=== PATIENT | male | born 1970 | race Caucasian/White ===

== ENCOUNTER 2017-05-15 07:22 | Emergency (ER) | payer OTHER ==
--- NOTE | 2017-05-15 07:41 | ED Physician Documentation ---
PD HPI NVD - Stated complaint Stated Complaint: MOSCOSO/NAUSEA - Chief complaint Chief Complaint: General - History obtained from History obtained from: Patient - History of Present Illness Timing - onset: How many days ago (3) Timing - duration: Days (3) Timing - details: Abrupt onset, Still present Associated symptoms: Fever, Abdominal pain, Loss of appetite, Other (headache) Contributing factors: Diabetes (noted his blood sugars slightly high 2 days ago in 200s, but otherwise have been pretty normal. Blood sugar this morning was 112.). No: Sick contact, Bad food, Recent antibiotics, Alcohol use Improved by: No: Vomiting, BM Worsened by: Eating, Palpation Similar symptoms before: Has not had sx before Recently seen: Not recently seen Review of Systems Constitutional: reports: Fever, Chills, Myalgias, Fatigue Eyes: denies: Loss of vision, Photophobia Ears: denies: Ear pain Nose: reports: Congestion Throat: reports: Sore throat. denies: Dental pain / toothache, Swollen tonsils Cardiac: denies: Chest pain / pressure, Palpitations Respiratory: denies: Cough GI: reports: Abdominal Pain, Nausea, Vomiting, Diarrhea. denies: Abdominal Swelling, Hematemesis, Bloody / black stool : denies: Dysuria, Frequency Skin: denies: Rash, Lesions Musculoskeletal: denies: Neck pain Neurologic: reports: Headache. denies: Confused, Altered mental status, Head injury Endocrine: denies: Weight loss Immunocompromised: denies: Immunocompromised, Chemotherapy PD PAST MEDICAL HISTORY - Past Medical History Past Medical History: Yes Cardiovascular: High cholesterol Respiratory: None Neuro: None Endocrine/Autoimmune: Type 1 diabetes GI: None : None HEENT: None Psych: None Musculoskeletal: None Derm: None - Past Surgical History Past Surgical History: Yes General: Cholecystectomy, Hiatal hernia repair - Present Medications Home Medications: Ambulatory Orders Medication Instructions Recorded Confirmed Aspirin [Aspir 81] 81 mg PO DAILY 08/28/13 05/15/17 Insulin Aspart [NovoLOG] 22 unit SQ TID 08/28/13 05/15/17 Insulin Glargine,Hum.rec.anlog 37 unit SQ BID 08/28/13 05/15/17 [Lantus] Simvastatin [Zocor] 40 mg PO DAILY 08/28/13 05/15/17 Ondansetron Odt [Zofran] 4 mg TL Q6H PRN #15 tablet 05/15/17 Tramadol HCl 50 mg PO Q6H PRN #20 tablet 05/15/17 - Allergies Allergies/Adverse Reactions: Allergies Allergy/AdvReac Type Severity Reaction Status Date / Time No Known Drug Allergies Allergy Verified 05/15/17 07:32 - Social History Does the pt smoke?: No Smoking Status: Never smoker Does the pt drink ETOH?: Yes Does the pt have substance abuse?: No - Immunizations Immunizations are current?: Yes - POLST Patient has POLST: Yes PD ED PE NORMAL - Vitals Vital signs reviewed: Yes - General General: Alert and oriented X 3, Well developed/nourished, Other (appears ill and pale, uncomfortable due to nausea and headache. ) - HEENT HEENT: PERRL (nonicteric), Ears normal, Pharynx benign. No: Moist mucous membranes - Neck Neck: Supple, no meningeal sign, No adenopathy - Cardiac Cardiac: RRR (tachycardic), No murmur - Respiratory Respiratory: No respiratory distress, Clear bilaterally - Abdomen Abdomen: Soft, Non tender, Non distended, No organomegaly. No: Normal bowel sounds (diminished) - Male Male : Deferred - Rectal Rectal: Deferred - Back Back: No CVA TTP - Derm Derm: Warm and dry, No rash. No: Normal color (pale) - Extremities Extremities: No tenderness to palpate, No edema, No calf tenderness / cord - Neuro Neuro: Alert and oriented X 3, No motor deficit, Normal speech Results - Vitals Vitals: Vital Signs - 24 hr 05/15/17 05/15/17 05/15/17 07:28 08:00 08:34 Temperature 36.3 C L Heart Rate 112 H 90 90 Respiratory 18 18 18 Rate Blood Pressure 121/83 H 109/69 107/65 O2 Saturation 97 98 98 05/15/17 05/15/17 05/15/17 09:45 11:54 12:48 Temperature 36.3 C L Heart Rate 87 86 87 Respiratory 16 12 16 Rate Blood Pressure 96/63 105/73 108/70 O2 Saturation 97 96 99 Oxygen O2 Source Room air - Labs Labs: Laboratory Tests 05/15/17 05/15/17 05/15/17 07:54 08:05 08:05 WBC 9.5 RBC 4.80 Hgb 14.5 Hct 41.4 L MCV 86.3 MCH 30.2 MCHC 35.1 RDW 12.9 Plt Count 149 MPV 9.5 Neut # 7.4 H Lymph # 1.2 L [place] # 0.8 Eos # 0.0 Baso # 0.0 Absolute Nucleated RBC 0.00 Nucleated RBC % 0.0 VBG pH VBG pCO2 VBG pO2 VBG HCO3 VBG Total CO2 VBG O2 Saturation VBG Base Excess Sodium 132 L Potassium 3.2 L Chloride 95 L Carbon Dioxide 23 Anion Gap 14.0 H BUN 15 Creatinine 0.9 Estimated GFR (MDRD) 90 Glucose 127 H Calcium 9.1 Magnesium 1.6 L Total Bilirubin 1.8 H AST 63 H ALT 33 Alkaline Phosphatase 55 Total Protein 7.6 Albumin 3.9 Globulin 3.7 Albumin/Globulin Ratio 1.1 Lipase 15 L Urine Color Urine Clarity Urine pH Ur Specific [place] Urine Protein Urine Glucose (UA) Urine Ketones Urine Occult Blood Urine Nitrite Urine Bilirubin Urine Urobilinogen Ur Leukocyte Esterase Ur Microscopic Review Urine Culture Comments Serum Ketones SMALL H Influenza A (Rapid) Negative Influenza B (Rapid) Negative Influenza Types A,B Ag - 05/15/17 05/15/17 08:21 12:15 WBC RBC Hgb Hct MCV MCH MCHC RDW Plt Count MPV Neut # Lymph # [place] # Eos # Baso # Absolute Nucleated RBC Nucleated RBC % VBG pH 7.462 H VBG pCO2 37.7 L VBG pO2 25.4 VBG HCO3 26.3 VBG Total CO2 27.5 VBG O2 Saturation 56.5 L VBG Base Excess 2.6 H Sodium Potassium Chloride Carbon Dioxide Anion Gap BUN Creatinine Estimated GFR (MDRD) Glucose Calcium Magnesium Total Bilirubin AST ALT Alkaline Phosphatase Total Protein Albumin Globulin Albumin/Globulin Ratio Lipase Urine Color YELLOW Urine Clarity CLEAR Urine pH 6.0 Ur Specific [place] <=1.005 Urine Protein NEGATIVE Urine Glucose (UA) NEGATIVE Urine Ketones 15 H Urine Occult Blood NEGATIVE Urine Nitrite NEGATIVE Urine Bilirubin NEGATIVE Urine Urobilinogen 0.2 (NORMAL) Ur Leukocyte Esterase NEGATIVE Ur Microscopic Review NOT INDICATED Urine Culture Comments NOT INDICATED Serum Ketones Influenza A (Rapid) Influenza B (Rapid) Influenza Types A,B Ag PD MEDICAL DECISION MAKING - ED course Complexity details: reviewed results, re-evaluated patient (feeling much better with fluids and meds. Hospitalist offered OBS but he is feeling improved enough to want to go home. ), considered differential (seems flu like; he does not seen meningitic despite complaint of headache. Seems dehydrated. Sugars are not elevated but will check for DKA as he has symptoms suggestive of that. ), d/w patient Departure - Departure Disposition: 01 Home, Self Care Clinical Impression: Flu-like symptoms, Dehydration Nausea & vomiting Qualifiers: Vomiting type: unspecified Vomiting Intractability: intractable Qualified Code( s): R11.2 - Nausea with vomiting, unspecified Diabetes Qualifiers: Diabetes mellitus type: type 1 Diabetes mellitus complication status: without complication Qualified Code(s): E10.9 - Type 1 diabetes mellitus without complications Condition: Stable Record reviewed to determine appropriate education?: Yes Instructions: ED Nausea Vomiting Prescriptions: Ondansetron Odt [Zofran] 4 mg TL Q6H PRN #15 tablet PRN Reason: Nausea / Vomiting Tramadol HCl 50 mg PO Q6H PRN #20 tablet PRN Reason: Pain Comments: Frequent fluids today. Start with bland food in simple carbohydrates and progress as able. Continue usual medications. Add ondansetron if needed for nausea. He can use Tylenol or ibuprofen for headache and pains. Add tramadol if needed for worse pain. Recheck if worse again over the next few days. Discharge Date/Time: 05/15/17 12:51
[2017-05-15] MEDS ORDERED: SODIUM CHLORIDE 0.9% 1,000 ML IV ONE ×3 (07:56→08:51)
[2017-05-15] MEDS ORDERED: ONDANSETRON 4 MG/2 ML VIAL IVP STA (07:56)
[2017-05-15] MEDS ORDERED: KETOROLAC 60 MG/2 ML VIAL IVP STA (07:56)
[2017-05-15] MEDS ORDERED: ACETAMINOPHEN 1,000 MG/100 ML 100 ML IV STA (07:56)
[2017-05-15] MEDS ORDERED: ONDANSETRON 4 MG/2 ML VIAL ONE (08:12)
[2017-05-15] MEDS ORDERED: KETOROLAC 30 MG/ML VIAL ONE (08:12)
[2017-05-15] MEDS ORDERED: ACETAMINOPHEN 1,000 MG/100 ML 100 ML IV ONE (08:13)
[2017-05-15 08:19] LABS: BASOPHILS % (AUTO) 0.5 %; EOSINOPHILS % (AUTO) 0.1 %; HCT - HEMATOCRIT 41.4 % (42.0-52.0); HGB - HEMOGLOBIN 14.5 g/dL (14.0-18.0); LYMPHOCYTES # (AUTO) 1.2 10^3/uL (1.5-3.5); LYMPHOCYTES % (AUTO) 12.8 %; MEAN CORPUSCULAR HEMOGLOBIN 30.2 pg (27.0-31.0); MEAN CORPUSCULAR HGB CONC 35.1 g/dL (32.0-36.0); MEAN CORPUSCULAR VOLUME 86.3 fL (80.0-94.0); MEAN PLATELET VOLUME 9.5 fL (7.4-11.4); MONOCYTES # (AUTO) 0.8 10^3/uL (0.0-1.0); MONOCYTES % (AUTO) 8.7 %; NEUTROPHILS # (AUTO) 7.4 10^3/uL (1.5-6.6); NEUTROPHILS % (AUTO) 77.9 %; RED CELL DISTRIBUTION WIDTH 12.9 % (12.0-15.0); UNCORRECTED WHITE BLOOD COUNT 9.5 x10^3/uL; WHITE BLOOD COUNT 9.5 x10^3/uL (4.8-10.8)
[2017-05-15 08:29] LABS: VBG PH 7.462 (7.31-7.41)
[2017-05-15 08:30] LABS: VBG BASE EXCESS 2.6 mmol/L (-2 - +2); VBG OXYGEN SATURATION 56.5 % (60-80); VBG TOTAL CO2 27.5 mmol/L (24-29)
[2017-05-15 08:31] LABS: ALBUMIN/GLOBULIN RATIO 1.1 (1.0-2.2); BILIRUBIN,TOTAL 1.8 mg/dL (0.2-1.0); BUN - BLOOD UREA NITROGEN 15 mg/dL (6-20); CALCIUM 9.1 mg/dL (8.5-10.3); CARBON DIOXIDE - CO2 23 mmol/L (21-32); CHLORIDE 95 mmol/L (101-111); CREATININE 0.9 mg/dL (0.6-1.2); GFR - MDRD 90 (>89); GLUCOSE 127 mg/dL (70-100); LIPASE 15 U/L (22-51); MAGNESIUM 1.6 mg/dL (1.7-2.8); POTASSIUM 3.2 mmol/L (3.5-5.0); SODIUM 132 mmol/L (135-145); TOTAL PROTEIN 7.6 g/dL (6.7-8.2)
[2017-05-15] MEDS ORDERED: POTASSIUM CHLOR 10 MEQ/100 ML 10 MEQ/100 ML BAG IV ONE ×2 (08:51→09:45)
[2017-05-15] MEDS ORDERED: MAGNESIUM SULFATE 2 GRAM 2 GM/50 ML BAG IV ONE ×2 (08:51→09:45)
[2017-05-15 12:48] VITALS: BP 108/70
[2017-05-15 13:02] LABS: BILIRUBIN,URINE NEGATIVE (NEGATIVE)
[2017-05-15 13:03] LABS: UA CHARGE (STRIP ONLY) YES; UR CULTURE IF IND NOT INDICATED
== END 2017-05-15 12:51 | disposition home or self-care (01) ==
LOC: ED 07:22
DX: E86.0 Dehydration (principal); E10.9 Type 1 diabetes mellitus without complications; Z79.4 Long term (current) use of insulin; E78.00 Pure hypercholesterolemia, unspecified; Z79.82 Long term (current) use of aspirin
CPT/HCPCS: 36415; 80053; 81003; 82009; 82803; 83690; 83735; 85025; 87275; 87276; 96361; 96365; 96367; 96368; 96375; 99284; J0131; 81001; 87086

== ENCOUNTER 2018-06-11 13:52 | Outpatient (CLI) | payer OTHER | END 2018-06-11 13:53 | disposition critical access hospital (66) | LOC: EMS 13:52 | PROVIDERS: ATTEND Surgery | DX: S09.90XA Unspecified injury of head, initial encounter (principal); R73.09 Other abnormal glucose; W18.30XA Fall on same level, unspecified, initial encounter; Y92.512 Supermarket, store or market as the place of occurrence of the external cause | CPT/HCPCS: A0425; A0427 ==

== ENCOUNTER 2018-06-11 14:09 | Observation (INO) | payer OTHER ==
[2018-06-11 15:04] LABS: BASOPHILS % (AUTO) 0.9 %; EOSINOPHILS # (AUTO) 0.1 10^3/uL (0.0-0.7); EOSINOPHILS % (AUTO) 2.1 %; LYMPHOCYTES # (AUTO) 1.1 10^3/uL (1.5-3.5); LYMPHOCYTES % (AUTO) 25.2 %; MEAN CORPUSCULAR HEMOGLOBIN 30.6 pg (27.0-31.0); MEAN CORPUSCULAR HGB CONC 34.8 g/dL (32.0-36.0); MEAN CORPUSCULAR VOLUME 87.8 fL (80.0-94.0); MEAN PLATELET VOLUME 8.6 fL (7.4-11.4); MONOCYTES # (AUTO) 0.3 10^3/uL (0.0-1.0); MONOCYTES % (AUTO) 7.2 %; NEUTROPHILS # (AUTO) 2.8 10^3/uL (1.5-6.6); NEUTROPHILS % (AUTO) 64.6 %; PLT - PLATELET COUNT 162 10^3/uL (130-450); RED BLOOD COUNT 4.57 10^6/uL (4.70-6.10); RED CELL DISTRIBUTION WIDTH 13.2 % (12.0-15.0); WHITE BLOOD COUNT 4.4 x10^3/uL (4.8-10.8)
[2018-06-11 15:16] LABS: ALBUMIN 4.2 g/dL (3.2-5.5); ALBUMIN/GLOBULIN RATIO 1.7 (1.0-2.2); BILIRUBIN,TOTAL 1.1 mg/dL (0.2-1.0); CALCIUM 8.8 mg/dL (8.5-10.3); CREATININE 0.7 mg/dL (0.6-1.2); TOTAL PROTEIN 6.7 g/dL (6.7-8.2)
--- NOTE | 2018-06-11 15:29 | CT Report ---
Reason: fall Procedure Date: 06/11/2018 Accession Number: [id number] / [id number] Procedure: CT - Head W/O CPT Code: FULL RESULT: EXAM: CT HEAD EXAM DATE: 06/11/2018 03:14 PM. CLINICAL HISTORY: Fall. COMPARISON: None. TECHNIQUE: Multiaxial CT images were obtained from the foramen magnum to the vertex. Reformats: Sagittal and coronal. IV contrast: None. In accordance with CT protocol optimization, one or more of the following dose reduction techniques were utilized for this exam: automated exposure control, adjustment of mA and/or KV based on patient size, or use of iterative reconstructive technique. FINDINGS: Parenchyma: No intraparenchymal hemorrhage. No evidence of mass, midline shift, or CT findings of infarction. Chambers-white differentiation is distinct. Extraaxial Spaces: Normal for age. No subdural or epidural collections identified. Ventricles: Normal in size and position. Sinuses and Orbits: Imaged paranasal sinuses, orbits, and mastoids show no significant abnormality. Bones: No evidence of fracture or calvarial defect. Other: There is focal thickening of the subgaleal soft tissues near the posterior vertex of the calvarium most likely subgaleal scalp hematoma. IMPRESSION: No evidence of fracture or intracranial injury. Probable subgaleal/scalp hematoma near the vertex. RADIA
--- NOTE | 2018-06-11 15:34 | CT Report ---
Reason: fall Procedure Date: 06/11/2018 Accession Number: [id number] / [id number] Procedure: CT - Cervical Spine W/O CPT Code: FULL RESULT: EXAM: CT CERVICAL SPINE WITHOUT CONTRAST DATE: 06/11/2018 03:14 PM. HISTORY: Fall. COMPARISONS: Head w/o 06/11/2018 2:58 PM. TECHNIQUE: Thin-section axial images were acquired of the cervical spine without contrast. Post-processing: Coronal and sagittal reformats. Other: None. In accordance with CT protocol optimization, one or more of the following dose reduction techniques were utilized for this exam: automated exposure control, adjustment of mA and/or KV based on patient size, or use of iterative reconstructive technique. FINDINGS: Alignment: No scoliosis or spondylolisthesis. Bones: No fracture or bone lesion. Interspace Levels/Facets: C1-C2: Unremarkable. C2-C3: Unremarkable. C3-C4: Unremarkable. C4-C5: Unremarkable. C5-C6: Unremarkable. C6-C7: Unremarkable. C7-T1: Unremarkable. Musculature: Normal. No fatty atrophy. Other: The paravertebral and prevertebral soft tissues are unremarkable. Nonspecific dependent airspace opacity in both upper lobes; consider atelectasis or aspiration in the right clinical scenario. IMPRESSION: 1. Normal cervical spine CT; no fracture appreciated. 2. Dependent nonspecific airspace opacity in both lungs, incompletely included. Consider atelectasis or aspiration in the right clinical scenario.. RADIA
[2018-06-11] MEDS ORDERED: DEXTROSE 50% ABBOJECT 25 GM/50 ML SYRINGE IVP STA (15:57)
--- NOTE | 2018-06-11 16:28 | ED Physician Documentation ---
PD HPI SYNCOPE - Stated complaint Stated Complaint: LOW BLOOD SUGAR - Chief complaint Chief Complaint: Neuro - History obtained from History obtained from: Patient - History of Present Illness Witnessed: Witnessed Timing - onset: How many hours ago (1) Duration: Unknown Preceding symptoms: Light headed Associated symptoms: No: Seizure, Incontinant of urine, Headache, Vision changes, Chest pain, Palpitations, Diaphoresis, Dyspnea, Nausea / vomiting, Abdominal pain Contributing factors: Decreased PO intake. No: Recent med change, Noxious stimulae, Emotional upset Injury occurred: Fell, Head injury, Bit tongue. 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 Per patient was shopping at [facility] and started feeling "funny" Like he is having a hypoglycemic event. He asked his son to buy him some candy. By the time patient's son returned to him he found his father on the floor of the store. EMS arrived and noted his blood sugar was 55. Patient was given D50 with good response. Patient stated he had a bowl of mashed potatoes for breakfast and was about to eat lunch but did not. He took his usual Lente insulin this morning. Patient denies any recent illness, travel or sick contact. Review of Systems Ten Systems: 10 systems reviewed and negative Constitutional: denies: Fever, Myalgias Eyes: denies: Loss of vision Cardiac: denies: Chest pain / pressure Respiratory: denies: Dyspnea, Cough GI: denies: Abdominal Pain, Nausea, Vomiting : denies: Dysuria Skin: reports: Abrasion (s) Musculoskeletal: denies: Neck pain, Back pain, Extremity pain Neurologic: reports: Syncope, Head injury, LOC. denies: Generalized weakness, Focal weakness, Numbness, Seizure, Headache PD PAST MEDICAL HISTORY - Past Medical History Past Medical History: Yes Cardiovascular: High cholesterol Respiratory: None Neuro: None Endocrine/Autoimmune: Type 1 diabetes GI: None : None HEENT: None Psych: None Musculoskeletal: None Derm: None - Past Surgical History Past Surgical History: Yes General: Cholecystectomy, Hiatal hernia repair - Present Medications Home Medications: Ambulatory Orders Medication Instructions Recorded Confirmed Aspirin [Aspir 81] 81 mg PO DAILY 08/28/13 05/15/17 Insulin Aspart [NovoLOG] 22 unit SQ TID 08/28/13 05/15/17 Insulin Glargine,Hum.rec.anlog 37 unit SQ BID 08/28/13 05/15/17 [Lantus] Simvastatin [Zocor] 40 mg PO DAILY 08/28/13 05/15/17 - Allergies Allergies/Adverse Reactions: Allergies Allergy/AdvReac Type Severity Reaction Status Date / Time No Known Drug Allergies Allergy Verified 06/11/18 14:17 - Social History Does the pt smoke?: No Smoking Status: Never smoker Does the pt drink ETOH?: Yes Does the pt have substance abuse?: No - Immunizations Immunizations are current?: Yes - POLST Patient has POLST: Yes PD ED PE NORMAL - Vitals Vital signs reviewed: Yes - General General: Alert and oriented X 3, No acute distress, Well developed/nourished - HEENT HEENT: PERRL, EOMI, Ears normal, Moist mucous membranes, Pharynx benign, Other (Posterior aspect of scalp with abrasion but no tenderness nor step-off. Left lower lip with small flat hematoma. 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, No motor deficit, No sensory deficit, Normal speech - Psych Psych: Normal mood, Normal affect Results - Vitals Vitals: Vital Signs - 24 hr 06/11/18 06/11/18 14:11 15:00 Temperature 35.7 C L Heart Rate 95 90 Respiratory 20 16 Rate Blood Pressure 134/88 H 124/91 H O2 Saturation 94 95 Oxygen O2 Source Room air - EKG (time done) 1446 Rate: Rate (enter#) Rhythm: NSR [place]: Normal Intervals: Normal [place] QRS: Normal Ischemia: Non specific changes - Labs Labs: Laboratory Tests 06/11/18 06/11/18 06/11/18 14:51 14:51 14:51 WBC 4.4 L RBC 4.57 L Hgb 14.0 Hct 40.1 L MCV 87.8 MCH 30.6 MCHC 34.8 RDW 13.2 Plt Count 162 MPV 8.6 Neut # (Auto) 2.8 Lymph # (Auto) 1.1 L [place] # (Auto) 0.3 Eos # (Auto) 0.1 Baso # (Auto) 0.0 Absolute Nucleated RBC 0.00 Nucleated RBC % 0.0 Sodium 138 Potassium 3.7 Chloride 106 Carbon Dioxide 24 Anion Gap 8.0 BUN 13 Creatinine 0.7 Estimated GFR (MDRD) 120 Glucose 133 H Calcium 8.8 Total Bilirubin 1.1 H AST 30 ALT 34 Alkaline Phosphatase 68 Troponin I < 0.04 Total Protein 6.7 Albumin 4.2 Globulin 2.5 Albumin/Globulin Ratio 1.7 Lipase 21 L PD MEDICAL DECISION MAKING - ED course Complexity details: reviewed results, re-evaluated patient, considered differential (Hypoglycemic event, intracranial bleed, electrolyte imbalance,), d/w patient, d/w family, d/w PMD ED course: 1540 patient and family informed of test results and CT scan. Repeat Accu-Chek was 69. We will give D50. [address] Gunter who knows the patient. She will admit the patient for observation. 1640 patient agreed to admission Departure - Departure Disposition: ED Place in Observation Clinical Impression: Hypoglycemia Syncope Qualifiers: Encounter type: initial encounter Condition: Stable
[2018-06-11] MEDS ORDERED: SODIUM CHLORIDE FLUSH 0.9% 10 ML SYRINGE IVP PRN (16:29)
[2018-06-11] MEDS ORDERED: IBUPROFEN 600 MG TABLET PO PRN (16:29)
[2018-06-11] MEDS ORDERED: oxyCODONE 5 MG TABLET PO PRN (16:29)
[2018-06-11] MEDS ORDERED: ONDANSETRON ODT 4 MG TABLET TL PRN (16:29)
[2018-06-11] MEDS ORDERED: ONDANSETRON 4 MG/2 ML VIAL IVP PRN (16:29)
--- NOTE | 2018-06-11 16:59 | HISTORY & PHYSICAL EXAMINATION ---
Chief Complaint - Chief Complaint Chief Complaint: loc for 3-[facility] History of Present Illness - Admitted From Admitted From:: Home/ER - History Obtained From Records Reviewed: [facility] History obtained from: patient and son and Dr. 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 His only main medical problem is that of type 1 diabetes. His A1c is around 7%. He takes Lantus 30 units in the morning and 25 units at night. Takes 15 units of NovoLog before meals plus whatever he needs to cover his carbs. Tries to be low on his carbs so he rarely needs to take extra. He oc casionally gets hypoglycemic. When he gets below 80 he starts to feel a little dizzy. He is rarely hypoglycemic. He ate a bowl of mashed potatoes this morning. And then he was doing [place] shopping at [facility] around 11 AM. He took his Lantus at 830, NovoLog at around the same time. While at [facility] he started to feel dizzy. His plan was to have lunch after shopping. He sent his son to go get a candy bar because he knew he was dizzy, slow and getting a low glucose. He remembers being in the candle aisle, and brief flashes of consciousness where he knew he was walking but not quite knowing where he was doing. The next thing he remembers is waking up on the floor near the socks and T-shirts. He thinks he was trying to get to the food court. His son found him unconscious, laying flat on his back with a pool of blood underneath his head. It looks like he came down on a rack of socks on his left side before he hit the floor. His son called out to a passerby to please call 911. An EMT who was getting last minute things at [facility] was there. There was also a retired marine in the store that helped him. Ambulance was called and his glucose was 57 at the scene and he was given an amp of D50. When he came to the emergency room he remembers waking up in the ambulance and even then it was difficult for him to remember things. He remembers me and 1 of the ER nurses approaching the cheryl. His tongue was sore where he bit it. There is no bowel or bladder incontinence. He was still confused, vague. Knew who he was, knew who we were, but had to struggle to recollect his memory. In the emergency room he was given an IV. No fluids. CT of the head and C-spine cleared his head and neck for fracture and bleed. When he got to the emergency room his glucose was in the 190s after being given that amp of D50. Over the course of the next 2 hours his glucose went back down again into the 70s. We gave him 2 cups of apple juice, a chicken sandwich, and he ate part of his took a candy bar and his glucose came back up again. Because he is now had 2 hypoglycemic episodes, and is still a little vague and slow, we will place him in observation for hypoglycemia until Lantus wears off and his sugar stays stabilized. History - Past Medical History Cardiovascular: reports: High cholesterol Respiratory: reports: None Neuro: reports: None Endocrine/Autoimmune: reports: Type 1 diabetes GI: reports: None : reports: None HEENT: reports: None Psych: reports: None Musculoskeletal: reports: None Derm: reports: None MRSA Hx?: No - Past Surgical History General: reports: Cholecystectomy, Hiatal hernia repair - Family & Social History Family History Comment/Other: Mom and dad are both in their late 60s. Dad is healthy as his mom. No major medical issues. 1 of several siblings, no major medical issues. To children. They are healthy. Living arrangement: At home Living Situation: With spouse/s.o. Social History Notes: Born and raised in [place]. 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 to his first . He has 2 children with her. Lives in his own home. Has no history of recreational substance abuse. Does not smoke. Rarely drinks alcohol if at all. - Substance History Use: Uses substance without health or social issues: NONE Abuse: Recurrent use of substance despite neg consequences: NONE Dependence: Experiences withdrawal or developed tolerances: NONE - POLST Patient has POLST: Yes POLST Status: Full Code Meds/Allgy - Home Medications Home Medications: Ambulatory Orders Medication Instructions Recorded Confirmed Aspirin [Aspir 81] 81 mg PO DAILY 08/28/13 05/15/17 Insulin Aspart [NovoLOG] 22 unit SQ TID 08/28/13 05/15/17 Insulin Glargine,Hum.rec.anlog 37 unit SQ BID 08/28/13 05/15/17 [Lantus] Atorvastatin Calcium [Lipitor] 80 mg PO QPM 06/11/18 06/11/18 Insulin Glargine [Lantus Solostar] 30 units SQ DAILY 06/11/18 06/11/18 - Allergies Allergies/Adverse Reactions: Allergies Allergy/AdvReac Type Severity Reaction Status Date / Time No Known Drug Allergies Allergy Verified 06/11/18 14:17 Review of Systems - Constitutional Constitutional: denies: Fatigue, Fever, Chills, Malaise, Weakness, Poor appetite - Eyes Eyes: reports: Other (Just before he passed out and since he is woken up, he has some photophobia). denies: Pain, Irritation, Amaurosis - Ears, Nose & Throat Ears, Nose & Throat: denies: Hearing loss, Hearing aids, Tinnitus, Nasal obstruction, Nasal congestion, Postnasal drainage, Dentures - Cardiovascular Cariovascular: denies: Irregular heart rate, Palpitations, Chest pain, Edema - Respiratory Respiratory: denies: Cough, Sputum production, Wheezing, Snoring - Gastrointestinal Gastrointestinal: denies: Abdominal pain, Abdominal distention, Constipation, Diarrhea, Change in bowel habits, Rectal bleeding, Black stools, Bloody stools, Nausea - Genitourinary Genitourinary: denies: Dysuria, Frequency, Urgency, Hematuria - Musculoskeletal Musculoskeletal: reports: Muscle pain, Muscle aches, Other (Left jaw hurts. He thinks he may have hit it. Right now his left lateral tongue is been bitten. He starting to get a headache.) - Integumentary Integumentary: denies: Rash, Pruritis, Lesions - Neurological Neurological: reports: General weakness, Headache, Memory problems (Right now. Usually he does not. Is only been with this episode that he feels foggy, hard to remember things). denies: Focal weakness, Dizziness, Numbness, Pre-existing deficit, Abnormal gait - Psychiatric Psychiatric: denies: Depression, Anxiety, Suicidal, Delusions, Hallucinations - Endocrine Endocrine: denies: Polyuria, Polydypsia, Polyphagia - Hematologic/Lymphatic Hematologic/Lymphatic: denies: Anemia, Bruising, Petechiae, Blood clots Prior Level of Functionality: Completely independent male. 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 Drives a car. Pays the bills. 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 Has no durable medical goods that he uses other than a glucometer. Exam - Vital Signs Reviewed Vital Signs: Yes Vital Signs: Vital Signs x48h Temp Pulse Resp BP Pulse Ox 06/11/18 15:00 90 16 124/91 H 95 06/11/18 14:11 35.7 C L 95 20 134/88 H 94 - Physical Exam General Appearance: positive: No acute distress, Alert, Other (I was first in the emergency room as he came through with equipment specialist on a gurney. At that point he was pale, very vague, slightly slurred speech. In the last 2 hours he is improved in his alertness but he is definitely not at baseline.) Eyes Bilateral: positive: PERRL, EOMI ENT: positive: Pharynx nml, Other (Left lateral tongue has been bit. Lower lip on the left side has been bit.) Neck: positive: No JVD, Stiff neck (From the fall. No nuchal rigidity.). negative: Lymphadenopathy (R), Lymphadenopathy (L), Carotid bruit Respiratory: positive: Chest non-tender. negative: Wheezes, Rales, Rhonchi Cardiovascular: positive: Regular rate & rhythm. negative: Systolic murmur, Gallop/S4, Friction rub Peripheral Pulses: positive: 1+ Abdomen: positive: Non-tender, No organomegaly, Nml bowel sounds, No distention Skin: positive: Warm, Dry, Other (On the back of his left shoulder over the scapular region he has a large crescent-shaped abrasion where as he went down he thinks he may have scraped a shelf through his clothes) Extremities: positive: Non-tender, Full ROM, Nml appearance Neurologic/Psychiatric: positive: Oriented x3, CN's nml (2-12), Motor nml, Other (Psychomotor slowing definitely evident at the beginning of his visit. Has improved slightly over the last 2 hours but not at baseline. At times his speech is slurred very slightly. Having memory issues. There is a scalp laceration that is about 2 cm on the occiput, a slight skin tear. Slightly oozing.) Reflexes: Bicep (R): 1+, Bicep (L): 1+, Knee (R): 1+, Knee (L): 1+, Ankle (R): 0, Ankle (L): 0 Babinski Reflex: Right: Down, Left: Down Conclusion/Plan - Problem List (1) Hypoglycemia due to type 1 diabetes mellitus Conclusion/Plan: He is very sure that he did not take more than his usual Dilaudid Lantus in the morning. And he thought that the bowl of mesh potatoes would carry him from the morning into the late morning early afternoon before lunch. He is startled that he is having this much hypoglycemia in the face of 1 single Lantus dose. Plan: Place in observation. D5 drip. Hold his Lantus for tonight but will give his usual Lantus in the morning. 5 choice carb diet Glucose check every 3 hours (2) Loss of consciousness Conclusion/Plan: Because of his continued slight confusion, psychomotor slowing, we are wondering if he may have had a seizure with his hypoglycemia. He almost seems postictal. CT of the head is negative for bleed. He has a scalp hematoma. But he did not have bowel or bladder incontinence. He did bite his tongue and his lip. Plan: Close monitoring. I doubt he is going to have another seizure since watching his sugars and making sure they stay elevated. (3) Scalp laceration Conclusion/Plan: ER MD doesn't feel he needs sutures. will keep clean and dry. Qualifiers: Encounter type: initial encounter Qualified Code(s): S01.01XA - Laceration without foreign body of scalp, initial encounter - Lab Results Lab results reviewed: Yes Fish Bones: 06/11/18 14:51 06/11/18 14:51 - Diagnostic Imaging Results Diagnostic Imaging Results Comments: CT CERVICAL SPINE WITHOUT CONTRAST DATE: 06/11/2018 03:14 PM. HISTORY: Fall. COMPARISONS: Head w/o 06/11/2018 2:58 PM. TECHNIQUE: Thin-section axial images were acquired of the cervical spine without contrast. Post-processing: Coronal and sagittal reformats. Other: None. In accordance with CT protocol optimization, one or more of the following dose reduction techniques were utilized for this exam: automated exposure control, adjustment of mA and/or KV based on patient size, or use of iterative reconstructive technique. FINDINGS: Alignment: No scoliosis or spondylolisthesis. Bones: No fracture or bone lesion. Interspace Levels/Facets: C1-C2: Unremarkable. C2-C3: Unremarkable. C3-C4: Unremarkable. C4-C5: Unremarkable. C5-C6: Unremarkable. C6-C7: Unremarkable. C7-T1: Unremarkable. Musculature: Normal. No fatty atrophy. Other: The paravertebral and prevertebral soft tissues are unremarkable. Nonspecific dependent airspace opacity in both upper lobes; consider atelectasis or aspiration in the right clinical scenario. IMPRESSION: 1. Normal cervical spine CT; no fracture appreciated. 2. Dependent nonspecific airspace opacity in both lungs, incompletely included. Consider atelectasis or aspiration in the right clinical scenario. CT HEAD EXAM DATE: 06/11/2018 03:14 PM. CLINICAL HISTORY: Fall. COMPARISON: None. TECHNIQUE: Multiaxial CT images were obtained from the foramen magnum to the vertex. Reformats: Sagittal and coronal. IV contrast: None. In accordance with CT protocol optimization, one or more of the following dose reduction techniques were utilized for this exam: automated exposure control, adjustment of mA and/or KV based on patient size, or use of iterative reconstructive technique. FINDINGS: Parenchyma: No intraparenchymal hemorrhage. No evidence of mass, midline shift, or CT findings of infarction. Chambers-white differentiation is distinct. Extraaxial Spaces: Normal for age. No subdural or epidural collections identified. Ventricles: Normal in size and position. Sinuses and Orbits: Imaged paranasal sinuses, orbits, and mastoids show no significant abnormality. Bones: No evidence of fracture or calvarial defect. Other: There is focal thickening of the subgaleal soft tissues near the posterior vertex of the calvarium most likely subgaleal scalp hematoma. IMPRESSION: No evidence of fracture or intracranial injury. Probable subgaleal/scalp hematoma near the vertex. CHEST RADIOGRAPHY EXAM DATE: 08/29/2013 12:24 AM. CLINICAL HISTORY: Chest pain. COMPARISON: None. TECHNIQUE: 1 view. FINDINGS: Lungs/Pleura: No focal opacities evident. No effusion or pneumothorax. Mediastinum: Within exam limitations, cardiomediastinal contour is normal. Other: None. IMPRESSION: Normal single view chest. - EKG Results EKG Interpreted Independently: No Core Measures - Anticipated LOS I expect patient to be DC'd or transferred within 96 hours.: Yes - DVT/VTE - Prophylaxis VTE/DVT Device ordered at admit?: Yes
[2018-06-11 17:04] LABS: HB2 TOTAL 14.3 g/dL; HEMOGLOBIN A1C 1.06 g/dL; HEMOGLOBIN A1C % 8.9 % (4.6-6.2)
[2018-06-11] MEDS: ACETAMINOPHEN 325 MG TABLET PO PRN ×2 (17:55→23:52)
[2018-06-11] MEDS ORDERED: DEXTROSE 5%-0.9% NACL 1,000 ML IV SCH (18:00)
[2018-06-11] MEDS: INSULIN ASPART 300 UNIT/3 ML PEN SUBQ SCH ×2 (18:05→20:46)
[2018-06-11] MEDS: SODIUM CHLORIDE FLUSH 0.9% 10 ML SYRINGE IVP SCH (18:06)
[2018-06-11] MEDS ORDERED: ATORVASTATIN 40 MG TABLET PO SCH (21:00)
[2018-06-11 23:02] LABS: BILIRUBIN,URINE NEGATIVE (NEGATIVE); GLUCOSE, URINE (UA) 250 mg/dL (NEGATIVE); KETONES,URINE (UA) NEGATIVE (NEGATIVE); LEUKOCYTE ESTERASE, URINE NEGATIVE (NEGATIVE); NITRITE,URINE NEGATIVE (NEGATIVE); OCCULT BLOOD,URINE NEGATIVE (NEGATIVE); PH,URINE 6.5 PH (5.0-7.5); PROTEIN,URINE NEGATIVE (NEGATIVE); UROBILINOGEN,URINE 0.2 (NORMAL) E.U./dL (NORMAL)
[2018-06-11 23:04] LABS: CLARITY,URINE CLEAR (CLEAR)
[2018-06-12 06:08] LABS: BASOPHILS % (AUTO) 0.8 %; EOSINOPHILS # (AUTO) 0.1 10^3/uL (0.0-0.7); EOSINOPHILS % (AUTO) 2.3 %; HGB - HEMOGLOBIN 13.3 g/dL (14.0-18.0); LYMPHOCYTES # (AUTO) 1.2 10^3/uL (1.5-3.5); LYMPHOCYTES % (AUTO) 21.2 %; MEAN CORPUSCULAR HEMOGLOBIN 30.2 pg (27.0-31.0); MEAN CORPUSCULAR HGB CONC 33.4 g/dL (32.0-36.0); MEAN CORPUSCULAR VOLUME 90.3 fL (80.0-94.0); MONOCYTES # (AUTO) 0.5 10^3/uL (0.0-1.0); MONOCYTES % (AUTO) 8.4 %; NEUTROPHILS # (AUTO) 3.7 10^3/uL (1.5-6.6); NEUTROPHILS % (AUTO) 67.3 %; PLT - PLATELET COUNT 148 10^3/uL (130-450); RED BLOOD COUNT 4.41 10^6/uL (4.70-6.10); RED CELL DISTRIBUTION WIDTH 13.4 % (12.0-15.0); WHITE BLOOD COUNT 5.5 x10^3/uL (4.8-10.8)
[2018-06-12 06:23] LABS: CALCIUM 8.7 mg/dL (8.5-10.3); CREATININE 0.7 mg/dL (0.6-1.2)
--- NOTE | 2018-06-12 07:42 | Discharge Plan ---
Discharge Plan Disposition: 01 Home, Self Care Condition: Stable Diet: Diabetic Activity Restrictions: No Restrictions Shower Restrictions: No Driving Restrictions: No Additional Instructions or Follow Up instructions: You were placed in observation because of hypoglycemia. In looking back on the day we think that you took your Lantus and NovoLog but did not eat enough food to cover them and subsequently had severe hypoglycemia with loss of consciousness. You hit your head hard enough that you have a laceration on the back of her scalp. There is no special bandage. Just keep it clean and dry. You can shower, and use your fingers to gently clean and scrub, but just keep it dry afterwards. Resume your usual doses of Lantus and NovoLog. You might want to increase some of your carb intake to avoid hypoglycemia, especially at night. Again, do not skip meals. Make sure you eat enough food to cover the Lantus and NovoLog you have just given yourself. Please see your primary care provider in follow-up in the next week. No Smoking: If you smoke, Please STOP! Call for help. Follow-up with: [facility], [facility] [Other]
[2018-06-12] MEDS: SODIUM CHLORIDE FLUSH 0.9% 10 ML SYRINGE IVP SCH (07:46)
[2018-06-12] MEDS ORDERED: INSULIN ASPART 300 UNIT/3 ML PEN SUBQ SCH (08:00)
[2018-06-12] MEDS ORDERED: INSULIN GLARGINE 300 UNIT/3 ML PEN SUBQ SCH (08:00)
[2018-06-12 08:23] VITALS: BP 121/81
[2018-06-12] MEDS ORDERED: POLYETHYLENE GLYCOL 3350 17 GM PACKET PO SCH (09:00)
[2018-06-12] MEDS: INSULIN ASPART 300 UNIT/3 ML PEN SUBQ SCH (09:00)
--- NOTE | 2018-06-13 18:34 | DISCHARGE SUMMARY ---
Physician: Tori Tijerina MD DATE OF ADMISSION: 06/11/2018 DATE OF DISCHARGE: 06/12/2018 DISCHARGE DIAGNOSES 1. Hypoglycemia due to type 1 diabetes mellitus. 2. Loss of consciousness. 3. Scalp laceration. DISCHARGE MEDICATIONS Unchanged: 1. Aspirin 81 mg p.o. q.p.m. 2. Lipitor 80 mg p.o. q.p.m. 3. NovoLog 50-25 units subcutaneous before meals t.i.d. p.r.n., glucose and carbohydrates. 4. Lantus 30 units subcutaneous daily in the morning and 25 units subcutaneously q.p.m. 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 He is fairly good about keeping control of his sugars, checks them regularly, and works with his primary care provider. He ate breakfast of a bowl mashed potatoes. He took his usual Lantus and NovoLog. Did not get around to eating lunch and had a hypoglycemic reaction while at [facility], falling and having a head laceration. In the ER, he had another episode of hypoglycemia, after which he was placed in observation for glucose monitoring. Lantus was held that night. He received his usual NovoLog as well as sliding scale. That unfortunately resulted him in getting a glucose of 57 in the early childhood assistant hours around 3:00 a.m. on the day of discharge. He rebounded back. He received his usual Lantus dose and NovoLog dose. However, NovoLog was sharply reduced. He is asked to followup with his primary care provider through [facility]. PHYSICAL EXAMINATION VITAL SIGNS: At discharge, temperature 36.9, pulse 87, blood pressure 121/81, respirations 18, 95% on room air. GENERAL: He is a stocky moderately overweight, middle-aged male who looks his stated age. Well groomed, well nourished. NECK: Supple. LUNGS: Clear. He has a regular rate and rhythm. ABDOMEN: Soft, nontender. No organomegaly. EXTREMITIES: Without edema. He is ambulatory in his room. Ate a full breakfast of eggs, rome, and sausage. TD: 06/13/2018 13:30 [facility]
== END 2018-06-12 10:01 | disposition home or self-care (01) ==
LOC: EDUNIT# → ED 14:09 → MS2 16:29
PROVIDERS: ADMIT Specialist; ATTEND Internal Medicine
DX: E10.649 Type 1 diabetes mellitus with hypoglycemia without coma (principal); R55 Syncope and collapse; S01.01XA Laceration without foreign body of scalp, initial encounter; W22.8XXA Striking against or struck by other objects, initial encounter; S01.512A Laceration without foreign body of oral cavity, initial encounter; S01.511A Laceration without foreign body of lip, initial encounter; W45.8XXA Other foreign body or object entering through skin, initial encounter; Y92.512 Supermarket, store or market as the place of occurrence of the external cause; E78.00 Pure hypercholesterolemia, unspecified; E66.3 Overweight; Z68.31 Body mass index [BMI] 31.0-31.9, adult; Y99.8 Other external cause status; Z79.4 Long term (current) use of insulin; Z79.82 Long term (current) use of aspirin
CPT/HCPCS: 36415; 70450; 72125; 80048; 80053; 81003; 83036; 83690; 84484; 85025; 93005; 96361; 96374; 99284; 99285; A9270; G0378; J1815; 81001; 87086

== ENCOUNTER 2019-04-04 06:04 | Day surgery (SDC) | payer OTHER ==
[2019-04-04] MEDS ORDERED: LACTATED RINGERS 1,000 ML IV ONE ×2 (06:28→09:04)
[2019-04-04] MEDS ORDERED: MIDAZOLAM 2 MG/2 ML VIAL IVP ONE (07:40)
[2019-04-04] MEDS ORDERED: fentaNYL 250 MCG/5 ML VIAL IVP ONE (07:40)
[2019-04-04] MEDS ORDERED: INSULIN REGULAR HUMAN 100 UNIT/1 ML 10 ML MDV ONE (07:44)
[2019-04-04 08:43] VITALS: BP 109/80
== END 2019-04-04 06:05 | disposition home or self-care (01) ==
LOC: SDS 06:04
PROVIDERS: ATTEND Surgery
PROC: 0DJD8ZZ Inspection of Lower Intestinal Tract, Via Natural or Artificial Opening Endoscopic (ICD-10-PCS; principal; 2019-04-04 07:30)
DX: Z12.11 Encounter for screening for malignant neoplasm of colon (principal); E10.8 Type 1 diabetes mellitus with unspecified complications; E78.5 Hyperlipidemia, unspecified; Z79.82 Long term (current) use of aspirin; Z79.4 Long term (current) use of insulin; Z87.891 Personal history of nicotine dependence
CPT/HCPCS: 45378; J1815; J3010; J7120

== ENCOUNTER 2022-06-23 08:07 | Day surgery (SDC) | payer OTHER ==
[~2022-06-23 08:07] MED LIST: BUPIVACAINE 0.25% PF 10 ML VIAL ONE
[2022-06-23] MEDS ORDERED: LACTATED RINGERS 1,000 ML IV ONE ×2 (08:45→11:12)
--- NOTE | 2022-06-23 09:55 | ANESTHESIA ---
Pre-Anesthesia VS, & Labs - Diagnosis left shoulder lipoma - Procedure excision of left shoulder lipoma Vital Signs: Temp Pulse Resp BP Pulse Ox O2 Flow Rate 36 C L 78 12 155/97 H 96 06/23/22 08:44 06/23/22 08:44 06/23/22 08:44 06/23/22 08:44 06/23/22 08:44 Height: 5 ft 10 in Weight (kg): 95 kg Body Mass Index: 30.0 BMI Classification: Obese - NPO >8 hours - Lab Results Current Lab Results: Laboratory Tests 06/23/22 08:41: POC Whole Bld Glucose 262 H 06/23/22 08:33: POC Whole Bld Glucose 284 H Home Medications and Allergies Home Medications: Ambulatory Orders Fluticasone [Flonase] 1 sprays LIBRADO DAILY 06/13/22 Multivitamin 1 each PO DAILY 06/13/22 Aspirin [Aspir 81] 81 mg PO QPM 08/28/13 Insulin Aspart [NovoLOG] 15 - 25 unit SQ TIDWM 08/28/13 Atorvastatin Calcium [Lipitor] 80 mg PO QPM 06/11/18 Insulin Glargine [Lantus Solostar] 30 - 35 units SQ DAILY 06/11/18 Fluticasone [Flonase] 1 sprays LIBRADO DAILY 06/13/22 Multivitamin 1 each PO DAILY 06/13/22 Allergies/Adverse Reactions: Allergies Allergy/AdvReac Type Severity Reaction Status Date / Time No Known Drug Allergies Allergy Verified 06/11/18 14:17 Anes History & Medical History - Anesthetic History Anesthesia Complications: reports: No previous complications, Emergence delirium - Medical History Cardiovascular: reports: None Pulmonary: reports: None Gastrointestinal: reports: None Urinary: reports: Kidney stones Neuro: reports: None Musculoskeletal: reports: Chronic back pain Endocrine/Autoimmune: reports: Type 1 diabetes Blood Disorders: reports: None Skin: reports: None Smoking Status: Former smoker Psychosocial: reports: No issues indicated History of Cancer?: No - Surgical History General: reports: Cholecystectomy, Colonoscopy, Other Exam General: Alert, Oriented x3, Cooperative, No acute distress Mouth Openin Fingerbreadth Neck Mobility: Normal Mallampati classification: III Thyromental Distance: 4-6 cm Mental/Cognitive Status: Alert/Oriented X3, Normal for patient Plan Anesthesia Type: General Consent for Procedure(s) Verified and Reviewed: Yes Code Status: Attempt Resuscitation ASA classification: 2-Mild systemic disease Is this case an emergency?: No
[2022-06-23] MEDS ORDERED: NALOXONE 0.4 MG/ML VIAL IVP PRN (10:00)
[2022-06-23] MEDS ORDERED: ONDANSETRON 4 MG/2 ML VIAL IVP PRN (10:00)
[2022-06-23] MEDS ORDERED: HYDROmorphone 0.5 MG/0.5 ML SYRINGE IVP PRN ×2 (10:00→11:20)
[2022-06-23] MEDS ORDERED: LACTATED RINGERS 1,000 ML IV SCH (10:00)
[2022-06-23] MEDS ORDERED: fentaNYL 100 MCG/2 ML VIAL IVP PRN (10:00)
[2022-06-23] MEDS ORDERED: MORPHINE 2 MG/ML CARPUJECT IVP PRN (10:00)
[2022-06-23] MEDS ORDERED: ATROPINE ABBOJECT 1 MG/10 ML SYRINGE IVP PRN (10:00)
[2022-06-23] MEDS ORDERED: PROPOFOL 200 MG/20 ML VIAL IVP ONE (10:03)
[2022-06-23] MEDS ORDERED: MIDAZOLAM 2 MG/2 ML VIAL ONE (10:04)
[2022-06-23] MEDS ORDERED: fentaNYL 100 MCG/2 ML VIAL ONE (10:04)
--- NOTE | 2022-06-23 10:04 | HISTORY & PHYSICAL EXAMINATION ---
Chief Complaint - Chief Complaint Chief Complaint: painful lump top left shoulder History of Present Illness - History Obtained From Records Reviewed: yes History obtained from: pt Exam Limitations: none - History of Present Illness HPI Comment/Other: growing and painful lump top of left shoulder History - Past Medical History Cardiovascular: reports: None Respiratory: reports: None Neuro: reports: None Endocrine/Autoimmune: reports: Type 1 diabetes GI: reports: None : reports: Kidney stones HEENT: reports: None Psych: reports: None Musculoskeletal: reports: Chronic back pain Derm: reports: None MRSA Hx?: No - Past Surgical History General: reports: Cholecystectomy, Colonoscopy, Other - Family & Social History Family History Comment/Other: Mom and dad are both in their late 60s. Dad is healthy as his mom. No major medical issues. 1 of several siblings, no major medical issues. To children. They are healthy. Social History Notes: Born and raised in [place]. 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 to his first . He has 2 children with her. Lives in his own home. Has no history of recreational substance abuse. Does not smoke. Rarely drinks alcohol if at all. - Substance History Use: Uses substance without health or social issues: NONE - POLST Patient has POLST: Yes POLST Status: Full Code Meds/Allgy - Home Medications Home Medications: Ambulatory Orders Medication Instructions Recorded Confirmed Aspirin [Aspir 81] 81 mg PO QPM 08/28/13 06/13/22 Insulin Aspart [NovoLOG] 15 - 25 unit SQ TIDWM 08/28/13 06/13/22 Atorvastatin Calcium [Lipitor] 80 mg PO QPM 06/11/18 06/13/22 Insulin Glargine [Lantus Solostar] 30 - 35 units SQ DAILY 06/11/18 06/23/22 Fluticasone [Flonase] 1 sprays LIBRADO DAILY 06/13/22 06/13/22 Multivitamin 1 each PO DAILY 06/13/22 06/13/22 - Allergies Allergies/Adverse Reactions: Allergies Allergy/AdvReac Type Severity Reaction Status Date / Time No Known Drug Allergies Allergy Verified 06/11/18 14:17 Review of Systems - Other Findings Other Findings: 10 pt ros as above otherwise unremarkable Exam - Vital Signs Reviewed Vital Signs: Yes Vital Signs: Vital Signs x48h Temp Pulse Resp BP Pulse Ox 06/23/22 08:44 36 C L 78 12 155/97 H 96 - Physical Exam General Appearance: positive: No acute distress, Alert Eyes Bilateral: positive: PERRL, EOMI ENT: positive: No signs of dehydration Neck: positive: No JVD, Trachea midline Respiratory: positive: No respiratory distress, Breath sounds nml Cardiovascular: positive: Regular rate & rhythm Abdomen: positive: No distention Extremities: positive: Other (top of left shoulder fixed 5 cm lipoma) Neurologic/Psychiatric: positive: Oriented x3 Conclusion/Plan - Problem List (1) Lipoma of left shoulder Conclusion/Plan: plan excision. parq held and consent obtained
[2022-06-23] MEDS ORDERED: BUPIVACAINE 0.25% PF 30 ML VIAL SUBQ ONE (10:42)
[2022-06-23] MEDS ORDERED: ONDANSETRON 4 MG/2 ML VIAL ONE (10:54)
[2022-06-23] MEDS ORDERED: HYDROcod/ACETAM 5/325 MG TABLET PO PRN (11:20)
--- NOTE | 2022-06-23 11:29 | OPERATIVE REPORT ---
Operative Report - General Procedure Date: 06/23/22 Planned Procedure: excision top of shoulder 5 cm lipoma Pre-Op Diagnosis: top of left shoulder lipoma Procedure Performed: excision subcutaneous left shoulder lipoma 4 cm 4 cm intermediate repair Post Op Diagnosis: 4 cm subcutaneous shoulder lipoma - Procedure Note Primary Surgeon: cristian cagle Anesthesia Technique: General LMA, Local Pathology: benign not sent Estimated Blood Loss (mL): 2 Drain/Tube Type: Other (none) Indications: painful and growing shoulder mass Findings: as above - Other Other Information/Narrative: The patient was properly identified brought to the operating room and placed in supine position. Laryngeal mask anesthesia was induced. Left shoulder was bumped upwards. He was carefully padded. He was prepped and draped in a sterile fashion. Antibiotics were not given. A 4 cm incision was made directly over the palpable mass. Dissection proceeded with cutting current. The lipoma was removed in its entirety with gentle retraction and cutting current cautery. Hemostasis was assured. The lipoma was densely adherent to musculature and surrounding subcutaneous tissue. Intermediate repair was then performed. Deep dermis and subcutaneous tissue was closed with interrupted 2-0 Vicryl sutures. Buried interrupted subdermal 3-0 Vicryl sutures were then placed. Skin was closed with a running 4-0 Monocryl subcuticular suture. Dressing was applied. Tolerated the procedure well and with was awakened and brought to recovery in good condition.
[2022-06-23 11:59] VITALS: BP 130/90
--- NOTE | 2022-06-23 18:58 | ANESTHESIA POST OP EVALUATION ---
Anesthesia Post Eval - Post Anesthesia Eval Vitals: Last Vital Signs Temp 36.3 C L 06/23/22 11:35 Pulse 71 06/23/22 11:58 Resp 14 06/23/22 11:58 BP 130/90 H 06/23/22 11:58 Pulse Ox 95 06/23/22 11:58 O2 Flow Rate CV Function Including HR & BP: Stable Pain Control: Satisfactory Nausea & Vomiting: Negative Mental Status: Baseline Respiratory Status: Airway Patent Hydration Status: Satisfactory Anesthesia Complications: None
== END 2022-06-23 08:08 | disposition home or self-care (01) ==
LOC: SDS 08:07
PROVIDERS: ATTEND Surgery
DX: D17.22 Benign lipomatous neoplasm of skin and subcutaneous tissue of left arm (principal); E10.9 Type 1 diabetes mellitus without complications; E66.9 Obesity, unspecified; Z68.30 Body mass index [BMI] 30.0-30.9, adult; Z79.4 Long term (current) use of insulin
CPT/HCPCS: 23071; J7120